=== PATIENT | male | born 1965 | race Caucasian/White ===

== ENCOUNTER 2017-10-07 01:21 | Emergency (ER) | payer BC ==
--- NOTE | 2017-10-07 12:28 | CT ---
PRELIMINARY REPORT/[facility]/EMERGENTY AFTER-HOURS PROCEDURE CT Head Without Intravenous Contrast EXAM DATE/TIME: Exam ordered 10/07/2017 1:41 AM CLINICAL HISTORY: 51 years old, male; Injury or trauma; Fall; Initial encounter; Abrasion; Head, generalized; Patient H X: M51 presents to ed via ems S/P fall. Patient landed on his head with possible loc from 4 feet. A&o 1 per ems. Patient was conscious on ems arival. Ems reports ETOH. TECHNIQUE: Axial computed tomography images of the head/brain without intravenous contrast. COMPARISON: No relevant prior studies available. FINDINGS: Brain: Unremarkable. No hemorrhage. No significant white matter disease. No edema. Ventricles: Unremarkable. No ventriculomegaly. Bones/joints: Unremarkable. No acute fracture. Soft tissues: Unremarkable. Sinuses: Unremarkable as visualized. No acute sinusitis. Mastoid air cells: Unremarkable as visualized. No mastoid effusion. IMPRESSION: Normal head/brain CT. Thank you for allowing us to participate in the care of your patient. Dictated and Authenticated by: Martin Olsen MD 10/07/2017 2:10 AM Central Time ([place] & [place]) FINAL REPORT HEAD CT WITHOUT CONTRAST: Date: 10/07/17 COMPARISON: None. HISTORY: Fall, trauma, pain. FINDINGS: I agree with the preliminary report given by Ezekiel. Imaged paranasal sinuses/mastoid air cells are wel l aerated. There is no displaced calvarial fracture, intracranial hemorrhage, midline shift, or mass effect. There is a mild degree of scalp swelling posteriorly on the left in the parietal region near the vertex. IMPRESSION: No intracranial hemorrhage or displaced calvarial fracture. POS: [facility]
--- NOTE | 2017-10-07 12:31 | CT ---
PRELIMINARY REPORT/[facility]/EMERGENTY AFTER-HOURS PROCEDURE CT Cervical Spine Without Intravenous Contrast EXAM DATE/TIME: Exam ordered 10/07/2017 1:39 AM CLINICAL HISTORY: 51 years old, male; Injury or trauma; Fall; Initial encounter; Abrasion; Patient HX: M51 presents to ed via ems S/P fall. Patient landed on his head with possible loc from 4 feet. A&o 1 per ems. Patient was conscious on ems arival. Ems reports ETOH. TECHNIQUE: Axial computed tomography images of the cervical spine without intravenous contrast. Coronal and sagi ttal reformatted images were created and reviewed. COMPARISON: No relevant prior studies available. FINDINGS: Vertebrae: No fracture. Discs/spinal canal/neural foramina: Degenerative change. No spinal canal stenosis. Soft tissues: Unremarkable. Lung apices: Unremarkable as visualized. IMPRESSION: No fracture. Thank you for allowing us to participate in the care of your patient. Dictated and Authenticated by: Martin Olsen MD 10/07/2017 2:11 AM Central Time ([place] & [place]) FINAL REPORT CERVICAL SPINE CT WITHOUT CONTRAST: Date: 10/07/17 HISTORY: Fall, trauma, pain. FINDINGS: I agree with the preliminary report given by vRtomasa. C1 ring is intact. Moderate degenerative change at atlantoaxial interspace. Craniocervical and cervic othoracic junction intact. There is prominent multilevel facet hypertrophy, right greater than left. There is disc space narrowi ng and degenerative end plate change present at C4-5, C5-6, and C6-7. Osteophyte encroachment involve s the right neural foramina at C5-6 and C6-7 with associated neural foraminal stenosis. Similar findi ngs are noted on the left at C6-7. No prevertebral soft tissue swelling. No acute fracture or disloca tion. Imaged lung apices are unremarkable. Mild posterior osteophyte at C6-7 noted. IMPRESSION: Extensive degenerative change within the cervical spine. If there is concern for underlying central c anal and/or neural foraminal stenosis, follow-up MRI may be beneficial. There is no evidence for acut e fracture or dislocation. POS: [facility]
== END 2017-10-07 02:35 | disposition home or self-care (01) ==
LOC: ERS 01:21
DX: S06.9X9A Unspecified intracranial injury with loss of consciousness of unspecified duration, initial encounter (principal); S00.03XA Contusion of scalp, initial encounter; F10.129 Alcohol abuse with intoxication, unspecified; M48.05 Spinal stenosis, thoracolumbar region; W19.XXXA Unspecified fall, initial encounter
CPT/HCPCS: 70450; 72125